=== PATIENT | female | born 1960 | race Caucasian/White ===

== ENCOUNTER 2016-05-27 17:55 | Emergency (ER) | payer OTHER ==
[2016-05-27 18:16] LABS: URINE CULTURE NEEDED? NO; URINE MICRO REVIEW NEEDED? NO; URINE SOURCE CLEAN CATCH
[2016-05-27 18:28] LABS: UR AMPHETAMINES QUAL NONE DETECTED (NONE DETECT); UR BARBITUATES QUAL NONE DETECTED (NONE DETECT); UR BENZODIAZEPIN QUAL NONE DETECTED (NONE DETECT); UR CANNABINOIDS QUAL NONE DETECTED (NONE DETECT); UR COCAINE QUAL NONE DETECTED (NONE DETECT); UR METHADONE QUAL NONE DETECTED (NONE DETECT); UR OPIATES QUAL NONE DETECTED (NONE DETECT); UR OXYCODONE QUAL NONE DETECTED (NONE DETECT); UR PCP QUAL NONE DETECTED (NONE DETECT)
[2016-05-27 18:30] LABS: BILIRUBIN URINE NEGATIVE (NEGATIVE); BLOOD URINE NEGATIVE (NEGATIVE); COLOR STRAW; GLUCOSE URINE 500 mg/dL (NEGATIVE); LEUKOCYTES URINE NEGATIVE (NEGATIVE); NITRITE URINE NEGATIVE (NEGATIVE); PH URINE 5.5; PROTEIN URINE NEGATIVE (NEGATIVE); SP GRAVITY URINE 1.004; TURBIDITY URINE CLEAR (CLEAR); UROBILINOGEN URINE NORMAL (NORMAL)
--- NOTE | 2016-05-27 18:32 | PROVIDER DOCUMENTATION ---
HPI-General Adult - General Chief Complaint: Psych Stated Complaint: SI Time Seen by Provider: 05/27/16 18:27 Source: patient Allergies/Adverse Reactions: Patient Allergies Allergy/AdvReac Type Severity Reaction Status Date / Time olanzapine [From Zyprexa] Allergy Intermediate SHORTNESS Verified 05/27/16 18:40 OF BREATH thioridazine HCl * Allergy Intermediate Unknown Verified 05/27/16 18:40 [From Mellaril] chlorpromazine HCl * Allergy Unknown Unknown Verified 05/27/16 18:40 [From Thorazine] haloperidol [From Haldol] Allergy Unknown Unknown Verified 05/27/16 18:40 haloperidol lactate * Allergy Unknown Unknown Verified 05/27/16 18:40 [From Haldol] Home Medications: Home Medication List Medication Instructions Recorded Confirmed Last Taken Type ATORVAstatin [Lipitor] 40 mg PO DAILY #0 12/17/15 05/27/16 02/11/16 11:00 Rx 40 Amlodipine [Norvasc] 2.5 mg PO DAILY #0 12/17/15 05/27/16 02/11/16 11:00 Rx 2.5 Insulin Glargine [Lantus] 23 unit SUBQ DAILY 30 Days 12/17/15 05/27/16 02/20/16 Rx Risperidone [Risperdal M-Tab] 2 mg PO BID 30 Days 12/17/15 05/27/16 02/11/16 11: 00 Rx 2 Sitagliptin [Januvia] 100 mg PO DAILY 30 Days 12/17/15 05/27/16 02/11/16 11:00 Rx 100 Ferrous Sulfate 325 mg PO BID #0 tablet 02/12/16 05/27/16 Unknown Rx - History of Present Illness -Gen Adult Nature of Presenting Problems: Pt. is 55 yof that presents with c/o SI and reports she has a plan to hang herself. Pt. reports she doesn't have a rope or she would have. Pt. states she has had mental health issues in the past and is very upset at time of exam. Pt. is quiet and doesn't want to answer questions and she is also tearful. Location of Pain/Injury: reports: none. denies: head, face, mouth, neck, chest , upper extremity, hand(s), abdomen, back, pelvis, genitalia, lower extremity, feet, upper body, lower body, generalized Pain Radiation: reports: no radiation Quality of Pain: reports: none. denies: aching, burning, cramping, dull, fullness, indigestion, pressure, sharp, stabbing, tearing, throbbing, tightness Severity: reports: moderate. denies: mild, severe Onset/Duration: reports: unsure Timing: reports: still present. denies: improving, gone now, resolved prior to arrival, intermittent, constant, changing over time, getting worse Context/Activities at Onset: reports: none, recent emotional stress. denies: recent physical stress, recent trauma history, possible bad food, cold exposure , out of country travel Modifying Factors: improves with: nothing Associated Symptoms: reports: anxiety, other (SI). denies: arm pain, back/neck pain, chest pain, constipation, cough, diaphoresis, diarrhea, dizziness, EENT symptoms, fatigue, fever/chills, genitourinary problems, headaches, heartburn, joint pain, loss of appetite, malaise, muscle aches, sinus congestion/drainage, nausea, rash, seizure, shortness of breath, sensory/motor loss, pain with inspiration, swelling/mass in abdomen, syncope, vomiting, weakness, trouble walking Similar Symptoms Previously?: Yes Recently seen or treated by another doctor?: No Review of Systems - Adult - REVIEW OF SYSTEMS - ADULT Constitutional: reports: see HPI. denies: chills, fever, fatique Eyes: reports: see HPI. denies: discharge, blurred vision, double vision Ears, Nose, Mouth & Throat: reports: see HPI. denies: ear pain, hearing loss, sinus problem, nose pain, loose teeth, mouth/dental pain, throat pain, throat swelling Cardiovascular: reports: see HPI. denies: chest pain, irregular heart rate, orthopnea, syncope Respiratory: reports: see HPI. denies: chronic cough, cough, dyspnea on exertion, pleurisy, shortness of breath, wheezing Gastrointestinal: reports: see HPI. denies: abdominal pain, hematemesis, diarrhea, frequent heartburn, nausea, vomiting Genitourinary: reports: see HPI. denies: dysuria, discharge, hematuria, hesitency, urgency Musculoskeletal: reports: see HPI. denies: bone pain, back pain, joint pain, muscle aches, neck pain Integumentary: reports: see HPI. denies: hives, hair loss, itching, rash, skin thickening Neurological: reports: see HPI. denies: ataxia, headache/migraines, numbness, paresthesia, seizure, tremors Psychiatric: reports: see HPI, anxiety, depression, emotional problems, suicidal thoughts. denies: insomnia, panic attacks Past History - Adult - PAST MEDICAL HISTORY-ADULT Review of Records: reports: Old Records Reviewed, Nursing Assessment Review, Medications Reviewed, Social history reviewed & non-contributory. Major Childhood Illnesses: reports: denies history Cardiovascular: reports: HTN, hyperlipidemia Respiratory: Gastrointestinal: reports: denies history Obstetrical/Gynecological: Genitourinary: reports: kidney disease Musculoskeletal: Neurological: Psychiatric: reports: anxiety, bipolar, depression, psychiatric problems, suicide attempt Endocrine/Immune: reports: Diabetes, thyroid disorder Other Conditions: - PRIOR SURGERIES/PROCEDURES Surgical/Procedure History: reports: other (exploratory) - IMMUNIZATION STATUS Childhood Immunizations: See Nurse Assessment Flu Vaccine: See Nurse Assessment - FAMILY HISTORY Family History: reviewed, not pertinent - SOCIAL HISTORY Smoking: cigarettes, less than 1 pack/day Provider spent 3-5 mins advising pt. on dangers of tobacco.: Discussed the need to stop smoking. Physical Exam-General - PHYSICAL EXAM-ADULT Initial Vital Signs Reviewed: Yes - CONSTITUTIONAL General Appearance: alert, moderate distress, thin, anxious. negative: obese, lethargic, slow to respond, obtunded, combative - EYES Eyes: PERRL/EOMI, pink conjunctivae. negative: conjuctival exudate, scleral icterus, subconjunctival hemorrhage - HEAD, EARS, NOSE, MOUTH & THROAT HENMT: normocephalic/atraumatic, moist mucous membranes. negative: angioedema, frontal tenderness, maxillary tenderness - NECK Neck: non-tender, full range of motion, supple, normal inspection. negative: lymphadenopathy, trachial deviation, thyromegaly - RESPIRATORY Respiratory: lungs clear, normal breath sounds. negative: crackles, rales, rhonchi, stridor, wheezing - CARDIOVASCULAR Cardiovascular: normal peripheral pulses, regular rate, rhythm, no edema, no JVD , no murmur. negative: friction rub, irregularly irregular - CHEST (BREASTS) Chest/Breast: deferred - GASTROINTESTINAL (ABDOMEN) Abdominal Exam: normal bowel sounds, non tender, soft. negative: distended, guarding, rigid, rebound, tenderness, hernia, mass - GENITOURINARY Female Genitalia/Pelvic Exam: deferred Rectal Exam: deferred Hemoccult Exam: deferred - LYMPHATIC Lymphatic: no adenopathy. negative: axilla node tender, cervical node tenderness - MUSCULOSKELETAL Back Exam: normal inspection, no CVA tenderness, no vertebral tenderness. negative: ecchymosis, swelling, vertebral tenderness Extremity: normal range of motion, non-tender, normal gait, normal inspection. negative: deformity, erythema, inflammation, swelling, tenderness Peripheral Pulses: radial (R): 2+, radial (L): 2+ - SKIN Integumentary: normal color, normal turgor, warm/dry. negative: cyanosis, diaphoresis, ecchymosis, erythema, jaundice, mottled, pallor, petechiae, purpura , rash, swelling, tenderness - NEUROLOGIC Neurologic: grossly normal, no motor/sensory deficits. negative: aphasia, facial droop, focal weakness, motor weakness, sensory deficit - PSYCHIATRIC Psych/Mental Status: oriented x 3, anxious, depressed affect, tearful, other (SI ) Progress - PLAN OF CARE/RESULTS Progress/Plan/Lab Results: Pt. was screened by [facility] and now the patient wants to leave AMA. Discussed with Dr. Pete and CN and both agree with letting patient sign the AMA form and leaving. Pt. is frequent visitor and leaves AMA frequently. Pt. advised of the risks of leaving up to and including . Pt. agrees and verbalizes understanding. Vital Signs Temp Pulse Resp BP Pulse Ox 05/27/16 18:06 98.2 F 87 18 153/71 98 olanzapine [From Zyprexa] Allergy (Intermediate, Verified 05/27/16 18:40) SHORTNESS OF BREATH thioridazine HCl * [From Mellaril] Allergy (Intermediate, Verified 05/27/16 18: 40) Unknown chlorpromazine HCl * [From Thorazine] Allergy (Unknown, Verified 05/27/16 18:40) Unknown haloperidol [From Haldol] Allergy (Unknown, Verified 05/27/16 18:40) Unknown doesn't remember haloperidol lactate * [From Haldol] Allergy (Unknown, Verified 05/27/16 18:40) Unknown doesn't remember ATORVAstatin [Lipitor] 40 mg PO DAILY #0 10/04/16 Amlodipine [Norvasc] 2.5 mg PO DAILY #0 12/17/15 Insulin Glargine [Lantus] 23 unit SUBQ DAILY 30 Days 12/17/15 Risperidone [Risperdal M-Tab] 2 mg PO BID 30 Days 12/17/15 Sitagliptin [Januvia] 100 mg PO DAILY 30 Days 12/17/15 Ferrous Sulfate 325 mg PO BID #0 tablet 02/12/16 Dietary Diet Diabetic Diet Start WedMay 28 1847 I&O 05/26/16 05/27/16 05/28/16 06:59 06:59 06:59 Output Total 50 Balance -50 Laboratory 05/27/16 05/27/16 05/27/16 18:20 18:20 18:20 WBC 7.96 RBC 4.10 L Hgb 11.4 L Hct 33.0 L MCV 80.5 L MCH 27.8 MCHC 34.5 RDW Std Deviation 12.3 Plt Count 223 MPV 10.7 H Immature Gran % (Auto) 0.3 Neut % (Auto) 55.2 Lymph % (Auto) 29.9 [place] % (Auto) 10.6 H Eos % (Auto) 3.4 Baso % (Auto) 0.6 Immature Gran # (Auto) 0.02 Neut # (Auto) 4.40 Lymph # (Auto) 2.38 [place] # (Auto) 0.84 H Eos # (Auto) 0.27 Baso # (Auto) 0.05 Sodium 129 L Potassium 4.7 Chloride 92 L Carbon Dioxide 25 Anion Gap 12 BUN 26 H Creatinine 1.4 H Estimated GFR/1.73 m2 39 BUN/Creatinine Ratio 19 Glucose 380 H Calculated Osmolality 279 Calcium 8.3 L Total Bilirubin 0.24 AST 19 ALT 16 Alkaline Phosphatase 108 H Total Protein 6.4 Albumin 3.6 Globulin 2.8 Albumin/Globulin Ratio 1.3 Vitamin B12 361 TSH 0.88 Free T4 1.81 H Urine Source Urine Color Urine Turbidity Urine pH Ur Specific [place] Urine Protein Ur Glucose (Stick) Ur Ketones (Stick) Urine Blood Urine Nitrite Urine Bilirubin Urobilinogen Dipstick Urine Leukocytes Urine WBC (Auto) Urine RBC (Auto) U Epithel Cells (Auto) Urine Bacteria (Auto) Urine Opiates Screen Ur Oxycodone Screen Ur Methadone, Qual Ur Barbiturates Screen Ur Phencyclidine Scrn Ur Amphetamines Screen U Benzodiazepines Scrn Urine Cocaine Screen U Cannabinoids Screen Plasma/Serum Ethyl Alc 05/27/16 05/27/16 05/27/16 18:20 18:00 18:00 WBC RBC Hgb Hct MCV MCH MCHC RDW Std Deviation Plt Count MPV Immature Gran % (Auto) Neut % (Auto) Lymph % (Auto) [place] % (Auto) Eos % (Auto) Baso % (Auto) Immature Gran # (Auto) Neut # (Auto) Lymph # (Auto) [place] # (Auto) Eos # (Auto) Baso # (Auto) Sodium Potassium Chloride Carbon Dioxide Anion Gap BUN Creatinine Estimated GFR/1.73 m2 BUN/Creatinine Ratio Glucose Calculated Osmolality Calcium Total Bilirubin AST ALT Alkaline Phosphatase Total Protein Albumin Globulin Albumin/Globulin Ratio Vitamin B12 TSH Free T4 Urine Source CLEAN CATCH Urine Color STRAW Urine Turbidity CLEAR Urine pH 5.5 Ur Specific [place] 1.004 Urine Protein NEGATIVE Ur Glucose (Stick) 500 A Ur Ketones (Stick) NEGATIVE Urine Blood NEGATIVE Urine Nitrite NEGATIVE Urine Bilirubin NEGATIVE Urobilinogen Dipstick NORMAL Urine Leukocytes NEGATIVE Urine WBC (Auto) <10 Urine RBC (Auto) <10 U Epithel Cells (Auto) <10 Urine Bacteria (Auto) NEGATIVE Urine Opiates Screen NONE DETECTED Ur Oxycodone Screen NONE DETECTED Ur Methadone, Qual NONE DETECTED Ur Barbiturates Screen NONE DETECTED Ur Phencyclidine Scrn NONE DETECTED Ur Amphetamines Screen NONE DETECTED U Benzodiazepines Scrn NONE DETECTED Urine Cocaine Screen NONE DETECTED U Cannabinoids Screen NONE DETECTED Plasma/Serum Ethyl Alc Orders Category Date Time Status Saline Loc NOW Care 05/27/16 19:18 Active Diabetic Diet Diet 05/27/16 18:48 Active ALCOHOL BLOOD Stat Lab 05/27/16 18:20 Completed CBC WITH ELECTRONIC DIFF [HEME] Stat Lab 05/27/16 18:20 Completed COMPREHENSIVE METABOLIC PANEL [CHEM] Stat Lab 05/27/16 18:20 Completed FREE T4 Stat Lab 05/27/16 18:20 Completed TSH Stat Lab 05/27/16 18:20 Completed URINALYSIS W/POSS RFLX CULT [URINALYSIS] Stat Lab 05/27/16 18:00 Completed URINE DRUG SCREEN Stat Lab 05/27/16 18:00 Completed VITAMIN B12 Stat Lab 05/27/16 18:20 Completed 0.9% Sodium Chloride Inj [Ns] 1,000 ml Med 05/27/16 19:18 Stop Req IV 999 mls/hr Diphenhydramine [Benadryl] Med 05/27/16 22:43 Stop Req 50 mg PO NOW ONE Water, Sterile Inj [Sterile Water Inj] Med 05/27/16 22:43 Stop Req 1.2 ml INJ NOW ONE Ziprasidone [Geodon] Med 05/27/16 22:43 Stop Req 20 mg IM NOW ONE Laboratory Tests 05/27/16 05/27/16 05/27/16 18:00 18:00 18:20 WBC RBC Hgb Hct MCV MCH MCHC RDW Std Deviation Plt Count MPV Immature Gran % (Auto) Neut % (Auto) Lymph % (Auto) [place] % (Auto) Eos % (Auto) Baso % (Auto) Immature Gran # (Auto) Neut # (Auto) Lymph # (Auto) [place] # (Auto) Eos # (Auto) Baso # (Auto) Sodium Potassium Chloride Carbon Dioxide Anion Gap BUN Creatinine Estimated GFR/1.73 m2 BUN/Creatinine Ratio Glucose Calculated Osmolality Calcium Total Bilirubin AST ALT Alkaline Phosphatase Total Protein Albumin Globulin Albumin/Globulin Ratio Vitamin B12 TSH Free T4 Urine Source CLEAN CATCH Urine Color STRAW Urine Turbidity CLEAR Urine pH 5.5 Ur Specific [place] 1.004 Urine Protein NEGATIVE Ur Glucose (Stick) 500 A Ur Ketones (Stick) NEGATIVE Urine Blood NEGATIVE Urine Nitrite NEGATIVE Urine Bilirubin NEGATIVE Urobilinogen Dipstick NORMAL Urine Leukocytes NEGATIVE Urine WBC (Auto) <10 Urine RBC (Auto) <10 U Epithel Cells (Auto) <10 Urine Bacteria (Auto) NEGATIVE Urine Opiates Screen NONE DETECTED Ur Oxycodone Screen NONE DETECTED Ur Methadone, Qual NONE DETECTED Ur Barbiturates Screen NONE DETECTED Ur Phencyclidine Scrn NONE DETECTED Ur Amphetamines Screen NONE DETECTED U Benzodiazepines Scrn NONE DETECTED Urine Cocaine Screen NONE DETECTED U Cannabinoids Screen NONE DETECTED Plasma/Serum Ethyl Alc 05/27/16 05/27/16 05/27/16 18:20 18:20 18:20 WBC 7.96 RBC 4.10 L Hgb 11.4 L Hct 33.0 L MCV 80.5 L MCH 27.8 MCHC 34.5 RDW Std Deviation 12.3 Plt Count 223 MPV 10.7 H Immature Gran % (Auto) 0.3 Neut % (Auto) 55.2 Lymph % (Auto) 29.9 [place] % (Auto) 10.6 H Eos % (Auto) 3.4 Baso % (Auto) 0.6 Immature Gran # (Auto) 0.02 Neut # (Auto) 4.40 Lymph # (Auto) 2.38 [place] # (Auto) 0.84 H Eos # (Auto) 0.27 Baso # (Auto) 0.05 Sodium 129 L Potassium 4.7 Chloride 92 L Carbon Dioxide 25 Anion Gap 12 BUN 26 H Creatinine 1.4 H Estimated GFR/1.73 m2 39 BUN/Creatinine Ratio 19 Glucose 380 H Calculated Osmolality 279 Calcium 8.3 L Total Bilirubin 0.24 AST 19 ALT 16 Alkaline Phosphatase 108 H Total Protein 6.4 Albumin 3.6 Globulin 2.8 Albumin/Globulin Ratio 1.3 Vitamin B12 361 TSH 0.88 Free T4 1.81 H Urine Source Urine Color Urine Turbidity Urine pH Ur Specific [place] Urine Protein Ur Glucose (Stick) Ur Ketones (Stick) Urine Blood Urine Nitrite Urine Bilirubin Urobilinogen Dipstick Urine Leukocytes Urine WBC (Auto) Urine RBC (Auto) U Epithel Cells (Auto) Urine Bacteria (Auto) Urine Opiates Screen Ur Oxycodone Screen Ur Methadone, Qual Ur Barbiturates Screen Ur Phencyclidine Scrn Ur Amphetamines Screen U Benzodiazepines Scrn Urine Cocaine Screen U Cannabinoids Screen Plasma/Serum Ethyl Alc After preparing the patient for AMA departure, [facility] has accepted the patient by Dr. Moon to room 612A. The patient has decided she wants to go there for treatment. Departure - Departure Time of Disposition Order: 22:47 DIAGNOSIS: Suicidal ideation Disposition: PS[facility]CHIATRIC HOSPITAL/[facility] [address] Certified Medical Emergency: Emergent Condition: Stable Additional Instructions: Follow up with primary care physician Return to ED for any concerns or worsening of symptoms ED Follow Up Instructions: You have been treated by a care provider in the Emergency Department. These instructions are being provided to you so you can have an understanding of how to care for yourself upon discharge. Upon discharge from the Emergency Department, you are responsible for making arrangements for follow-up care by a physician of your choice. Take all prescribed medications as directed. Return to the Emergency Department immediately for any new or worsening symptoms. You may call the Physician Referral phone number at [phone] to obtain a list of Physicians who are taking new patients. Referrals: None,PCP [Primary Care Provider] - Attestation - Physician/ ALIS Attestation Patient care was provided by Advanced Practice Provider:: Yes Advanced Practice Provider:: Aiyana Yeboah Advanced Practice Provider documentation review:: The Mid-level provider documentation, treatment plan and medical decision making was reviewed by the physician who agrees with all treatment and medical decision making by the MLP.
[2016-05-27 18:33] LABS: UR EPITHELIAL CELLS <10 /HPF (<10); URINE BACTERIA NEGATIVE /HPF; URINE RBC <10 /HPF (<10); URINE WBC <10 /HPF (<10)
[2016-05-27 18:33] LABS: MANUAL DIFF NEEDED? NO
[2016-05-27 18:37] LABS: BASO% 0.6 % (0.0-0.8); EOS# 0.27 X1000 (0.0-0.7); EOS% 3.4 % (0.0-10.0); HEMOGLOBIN 11.4 g/dL (12.0-16.0); IMM GRAN# 0.02 X1000 (0.0-0.04); IMM GRAN% 0.3 % (0.0-0.5); LYMPH# 2.38 X1000 (1.2-3.4); LYMPH% 29.9 % (20.5-51.1); MCH 27.8 PG (27-31); MCHC 34.5 g/dL (33-37); MCV 80.5 FL (81-99); MONO# 0.84 X1000 (0.11-0.59); MONO% 10.6 % (1.7-9.3); MPV 10.7 FL (7.4-10.4); NEUT% 55.2 % (42.2-75.2); PLT 223 X1000 (130-400)
[2016-05-27 18:59] LABS: ALBUMIN 3.6 g/dL (3.5-5.0); CALCIUM 8.3 mg/dL (8.8-10.2); POTASSIUM 4.7 mmol/L (3.5-5.1); TOTAL BILIRUBIN 0.24 mg/dL (0.20-1.00); TOTAL PROTEIN 6.4 g/dL (6.3-8.3)
[2016-05-27] MEDS ORDERED: NS 1,000 ML IV ONE (19:18)
[2016-05-27 19:26] LABS: FREE T4 1.81 ng/dL (0.93-1.70)
[2016-05-27] MEDS ORDERED: BENADRYL PO ONE (22:43)
[2016-05-27] MEDS ORDERED: GEODON IM ONE (22:43)
[2016-05-27] MEDS ORDERED: STERILE WATER INJ. INJ ONE (22:43)
[2016-05-28 00:58] VITALS: BP 155/95
== END 2016-05-28 00:55 ==
LOC: EDBD → ED 17:55
DX: R45.851 Suicidal ideations (principal); I10 Essential (primary) hypertension; E78.5 Hyperlipidemia, unspecified; E11.9 Type 2 diabetes mellitus without complications; F41.9 Anxiety disorder, unspecified; F32.9 Major depressive disorder, single episode, unspecified; F31.9 Bipolar disorder, unspecified; Z79.899 Other long term (current) drug therapy; F17.210 Nicotine dependence, cigarettes, uncomplicated; Z71.6 Tobacco abuse counseling
CPT/HCPCS: 80053; 81001; 82607; 84439; 84443; 85025; G0480; J7030; 80320; 80324; 80345; 80346; 80349; 80353; 80358; 80361; 80365; 83992